=== PATIENT | female | born 1975 | race Caucasian/White ===

== ENCOUNTER → 2017-04-11 | Outpatient (CLI) | payer BC ==
[~2017-04-11] MED LIST: AMBIEN 10MG TAB10 MG PO; BENADRYL 25MG C25 MG PO; CIPROFLOXACIN500 MG PO; FLONASE 50 MCG16 GM; HYDROCODONE BI473 ML PO; HYDROCODONE-APA1 TA1 PO; IMITREX100 MG PO; LAMICTAL25 MG PO; NORTRIPTYLINE H25 M1 PO; PEPCID20 MG OR; PHENAZOPYRIDIN200 M1 PO; PREDNISONE 10MG10 MG PO; SINGULAIR 10 MG10 MG PO; SULFAMETHOXAZOLE-TMP PO
[2017-04-11 13:02] LABS: HEMOGLOBIN 12.6 g/dL (12.2-16.2); LYMPH # 1.8 K/mm3 (0.7-4.5); LYMPH % 26.2 % (10-50.0)
[2017-04-11 14:22] LABS: BUN 10 mg/dL (7-18)
[2017-04-11 14:23] LABS: GFR (ESTIMATED) 78 ML/MIN (59-)
[2017-04-13 10:39] LABS: Anti-DNA (DS) Ab Qn <1 IU/mL (0-9); Antinuclear Antibodies, IFA Negative (.); CCP Antibodies IgG/IgA 3 units (0-19); RA Latex Turbid. <10.0 IU/mL (0.0-13.9); Vitamin D, 25-Hydroxy 40.1 ng/mL (30.0-100.0)
[2017-04-13 14:40] LABS: Lupus Reflex Interpretation Comment: (.); PTT-LA 33.7 sec (0.0-51.9); dRVVT 35.8 sec (0.0-47.0)
== END ==
LOC: LAB 12:09
PROVIDERS: Physician Assistant
DX: R21 Rash and other nonspecific skin eruption (principal); R20.2 Paresthesia of skin; R90.89 Other abnormal findings on diagnostic imaging of central nervous system